=== PATIENT | female | born 1995 | race Caucasian/White ===

== ENCOUNTER 2017-04-27 19:57 | Outpatient (CLI) | payer BC ==
[~2017-04-27] VITALS: Ht 167.6 cm; Wt 97.4 kg
[2017-04-27 21:06] VITALS: BP 101/57; PULSE 79; RESP 18
[2017-04-27] MEDS ORDERED: PNV1TABL12 PO (21:09)
--- NOTE | 2017-04-27 21:35 | RADRPT ---
PROCEDURE: US biophysical profile. CLINICAL INDICATION: labor at 29 weeks gestational age. TECHNIQUE: Multiple sonographic images of the uterus were obtained. Transvaginal sonograp hy of the cervix was also performed. The images were reviewed on a PACS workstation. COMPARISON: No prior studies are available for comparison. FINDINGS: There is a single live intrauterine gestation. heart rate is 152 beats per minute. The position is breech. The placenta is anterior grade 1 with no abruption or previa. The ANNETTE is 14.0 cm. (Normal = 5-20 cm.) Cervical length is 4.9 cm. Breathing Movement: 2 Gross Body Movement: 2 Tone: 2 Qualitative Amniotic Fluid Volume: 2 TOTAL: 8 IMPRESSION: 1. The biophysical score is 8/8. 2. Cervical length is 4.9 cm. RPTAT: QQ .Mook Cheatham MD, Date Time Electronically viewed and signed by .Mook Cheatham MD, on 04/27/2017 21:35 .R/
[2017-04-27 21:49] LABS: BASOPHILS % 0.2 % (0.0-2.0); EOSINOPHILS # 0.1 10^3/ul (0.0-0.5); EOSINOPHILS % 0.4 % (0.0-7.0); HEMATOCRIT 31.5 % (37.0-47.0); HEMOGLOBIN 10.6 g/dl (12.0-16.0); LYMPHOCYTES # 2.5 10^3/ul (0.8-2.9); LYMPHOCYTES % 20.3 % (18.0-55.0); MEAN CORPUSCULAR HEMOGLOBIN 30.3 pg (29.0-33.0); MEAN CORPUSCULAR HGB CONC 33.7 g/dl (32.0-37.0); MEAN PLATELET VOLUME 9.9 fl (7.4-10.4); MONOCYTE # 0.7 10^3/ul (0.3-0.9); MONOCYTES % 5.7 % (0.0-13.0); NEUTROPHIL # 8.7 10^3/ul (1.6-7.5); NEUTROPHILS % 71.9 % (30.0-74.0); PLATELET COUNT 244 10^3/UL (140-415); WHITE BLOOD COUNT 12.1 10^3/ul (4.8-10.8)
[2017-04-27 21:50] LABS: ADD UMIC YES; UR ASCORBIC ACID NEGATIVE (NEGATIVE); UR BILIRUBIN (Dip) NEGATIVE (NEGATIVE); UR BLOOD (Dip) NEGATIVE (NEGATIVE); UR CLARITY SLIGHTLY CLOUDY (CLEAR); UR COLOR YELLOW (YELLOW); UR GLUCOSE (Dip) NEGATIVE (NEGATIVE); UR KETONES (Dip) NEGATIVE (NEGATIVE); UR LEUKOCYTE ESTERASE (Dip) 1+ Leu/ul (NEGATIVE); UR MUCUS FEW /HPF (NONE SEEN); UR NITRITE (Dip) NEGATIVE (NEGATIVE); UR RBC 2 /HPF (0-5); UR SPECIFIC GRAVITY (Dip) 1.018 (1.003-1.030); UR SQUAMOUS EPITHELIAL CELL FEW /HPF (FEW); UR TOTAL PROTEIN (Dip) NEGATIVE (NEGATIVE); UR UROBILINOGEN (Dip) NEGATIVE (NEGATIVE)
[2017-04-27] MEDS ORDERED: MAGNESIUM HYDROXIDE 30ML CUP PO ONE (23:00)
--- NOTE | 2017-04-27 23:11 | PN ---
Triage Information Date/Time 04/27/172299 Reason for visit: Abd/pelvic pain Weeks of Gestation 29w3d /Para Diabetes: none Hypertention: none Additional information no abdominal pain after straining to have bowel movement ,c/o constipation denies any other subjective symptoms such as nausea vomiting or diarrhea more likely pulling pain on both sides alleviated by rest Objective Vital Signs Date Time Temp Pulse Resp B/P Pulse Ox O2 Delivery O2 Flow Rate FiO2 04/27/17 21:06 98.5 79 18 101/57 Room Air Heart Rate: 150's Contractions: None Results/Medications Result Diagram: 04/27/172141 Results 24 hrs Laboratory Tests Test 04/27/17 20:30 04/27/17 21:42 Urine Color YELLOW Urine Clarity SLIGHTLY CLOUDY A Urine pH 6.0 Urine Specific [place] 1.018 Urine Ketones NEGATIVE Urine Nitrite NEGATIVE Urine Bilirubin NEGATIVE Urine Urobilinogen NEGATIVE Urine Leukocyte Esterase 1+ H Urine Microscopic RBC 2 Urine Microscopic WBC 6 H Urine Squamous Epithelial Cells FEW Urine Mucus FEW A Urine Hemoglobin NEGATIVE Urine Glucose NEGATIVE Urine Total Protein NEGATIVE White Blood Count 12.1 H Red Blood Count 3.50 L Hemoglobin 10.6 L Hematocrit 31.5 L Mean Corpuscular Volume 90.0 Mean Corpuscular Hemoglobin 30.3 Mean Corpuscular Hemoglobin Concent 33.7 Red Cell Distribution Width 13.0 Platelet Count 244 Mean Platelet Volume 9.9 Neutrophils % 71.9 Lymphocytes % 20.3 Monocytes % 5.7 Eosinophils % 0.4 Basophils % 0.2 Nucleated Red Blood Cells % 0.0 Neutrophils # 8.7 H Lymphocytes # 2.5 Monocytes # 0.7 Eosinophils # 0.1 Basophils # 0.0 Nucleated Red Blood Cells # 0.0 Medications [facility] 30cc Imaging Results BPP8/8 CVL 4.9 ANNETTE 14 Disposition: Discharge Assessment/Plan IUP 29w3d pelvic pain ,ligament pain secondary to constipation PLAN DISCHARGE HOME RTH prBOWEN Forrester MD Apr 27, 2017 23:11
--- NOTE | 2017-04-28 00:06 | TRIAGE ---
OB Triage Datetime Report Generated by CPN: 04/28/2017 00:05 Datetime: 04/27/2017 22:24 Stage of : OB Triage Monitor Mode: External Pattern: Normal: <= 5 Contractions in 10 Minutes Resting Tone [place]: Relaxed Heart Rate FHR Baseline Rate: 140 Monitor Mode: External US FHR Baseline Changes: No Baseline Change Variability: Moderate 6-25 bpm Accelerations: 15X15 Decelerations: None Category: Category I Datetime: 04/27/2017 21:33 Stage of : OB Triage Heart Rate FHR Baseline Rate: 150 Monitor Mode: External US Datetime: 04/27/2017 21:16 Stage of : OB Triage Monitor Mode: External Pattern: Normal: <= 5 Contractions in 10 Minutes Resting Tone [place]: Relaxed Heart Rate FHR Baseline Rate: 140 Monitor Mode: External US FHR Baseline Changes: No Baseline Change Variability: Moderate 6-25 bpm Accelerations: 15X15 Decelerations: None Category: Category I Datetime: 04/27/2017 20:53 Stage of : OB Triage EGA: 29.3 Maternal Assessment Level of Consciousness: Fully Conscious Headache: Denies Blurred Vision: No Respiratory Effort: Unlabored Nausea/Vomiting: Denies RUQ Epigastric Pain: Denies Facial Edema: None Labor Evaluation Frequency: placed Monitor Mode: External Quality: Mild Pattern: Normal: <= 5 Contractions in 10 Minutes Monitor Mode: External US Comments: FHT 155 Pain Assessment Pain Scale: 8 Pain Presence: Constant Pain Type: Sharp Pain Location: Abdomen Pain Assessment Comments: Pain in lower abdomen constant since 0800 Datetime: 04/27/2017 20:30 Time of Arrival: 04/27/2017 19:45 Arrived By: Wheelchair Arrived From: Home Chief Complaint: GiP0 c/o constant lower abd pain since 0800 and sm amt discharge Movement: Present Contractions: Denies/Absent Rupture of Membranes: Denies Vaginal Bleeding: None Vaginal Discharge: Denies Recent Sexual Intercouse: Denies Abdominal Trauma: Not Applicable Patient Complaints: Other Time Provider Notified: 04/27/2017 21:16 Provider Notified: Dr York Initial Plan: EFM,CVL,BPP, CBC,UA,
== END 2017-04-27 22:53 | disposition home or self-care (01) ==
LOC: OBT 19:57 → L-D 19:59 → OBT 22:53
PROVIDERS: ATTEND Obstetrics & Gynecology
DX: O26.893 Other specified pregnancy related conditions, third trimester (principal); Z3A.29 29 weeks gestation of pregnancy; K59.00 Constipation, unspecified
CPT/HCPCS: 36415; 76817; 76818; 81001; 85025; Z7500; Z7610; G0463

== ENCOUNTER 2017-07-15 20:50 | Inpatient (IN) | END 2017-07-20 12:45 | disposition home or self-care (01) | DRG 766 ==